=== PATIENT | male | born 1960 | race Asian ===

== ENCOUNTER 2019-04-22 15:58 | Emergency (ER) | payer SELFPAY ==
[~2019-04-22] VITALS: Ht 162.6 cm; Wt 54.5 kg
[2019-04-22 16:01] VITALS: BP 126/73; PULSE 72; TEMP 97.7
== END 2019-04-22 17:49 | disposition home or self-care (01) ==
LOC: COL.ER 15:58
DX: T50.905A Adverse effect of unspecified drugs, medicaments and biological substances, initial encounter (principal); H10.213 Acute toxic conjunctivitis, bilateral; Z23 Encounter for immunization